=== PATIENT | female | born 1970 | race African-American/Black ===

== ENCOUNTER 2017-07-09 10:02 | Inpatient (IN) | payer OTHER ==
[2017-07-09] MEDS ORDERED: LORAZEPAM 2 MG INJ IV (12:30)
[2017-07-09] MEDS ORDERED: ALBUTEROL/IPRATROPIUM (NEB) 3 ML AMP HHN (12:30)
[2017-07-09] MEDS ORDERED: MAGNESIUM HYDROXIDE 30ML CUP PO (12:30)
[2017-07-09] MEDS ORDERED: NITROGLYCERIN (SL) 0.4 MG TAB SL (12:30)
[2017-07-09] MEDS ORDERED: hydrALAzine 20 MG INJ IV (12:30)
[2017-07-09] MEDS ORDERED: NACL 0.9% 3 ML SYG IV (12:30)
[2017-07-09] MEDS ORDERED: DOCUSATE SODIUM 100 MG CAP PO (12:30)
[2017-07-09] MEDS ORDERED: ONDANSETRON 4 MG INJ IV (12:30)
[2017-07-09] MEDS ORDERED: NA PHOSPHATE/BIPHOS 133 ML ENEMA PR (12:30)
[2017-07-09 14:07] LABS: INR 0.98; PROTIME 13.1 Sec (11.9-14.9)
[2017-07-09 14:08] LABS: PARTIAL THROMBOPLASTIN TIME 28.3 Sec (25.0-35.0)
[2017-07-09] MEDS: BACLOFEN 10 MG TAB PO ×2 (14:18→20:53)
[2017-07-09] MEDS: ACET/BUTAL/CAFF TAB PO (14:18)
[2017-07-09] MEDS: SOD CHLORIDE 0.45% 1,000 ML IV (14:19)
[2017-07-09 14:20] LABS: FREE T4 (FREE THYROXINE) 1.21 ng/dl (0.64-1.79)
[2017-07-09] MEDS: HEPARIN 5,000 UNIT/0.5 ML VIAL SC (20:56)
[2017-07-09] MEDS: ACETAMINOPHEN 325 MG TAB PO (20:57)
[2017-07-09] MEDS: morphine 2 MG INJ IV (23:15)
[2017-07-10] MEDS: SOD CHLORIDE 0.45% 1,000 ML IV ×2 (01:25→05:29)
[2017-07-10 05:26] LABS: ADD MAN DIFF? NO
[2017-07-10] MEDS: PANTOPRAZOLE 40 MG INJ IV (05:28)
[2017-07-10 05:33] LABS: BASOPHIL # 0.1 10^3/ul (0.0-0.1); BASOPHILS % 0.8 % (0.0-2.0); EOSINOPHILS # 0.2 10^3/ul (0.0-0.5); EOSINOPHILS % 2.6 % (0.0-7.0); HEMATOCRIT 39.2 % (37.0-47.0); HEMOGLOBIN 12.8 g/dl (12.0-16.0); LYMPHOCYTES % 48.9 % (15.0-51.0); MEAN CORPUSCULAR HEMOGLOBIN 27.2 pg (29.0-33.0); MEAN CORPUSCULAR HGB CONC 32.7 g/dl (32.0-37.0); MEAN CORPUSCULAR VOLUME 83.4 fl (82.0-101.0); MEAN PLATELET VOLUME 9.9 fl (7.4-10.4); MONOCYTE # 0.5 10^3/ul (0.3-0.9); MONOCYTES % 8.3 % (0.0-11.0); NEUTROPHIL # 2.4 10^3/ul (1.6-7.5); NEUTROPHILS % 39.2 % (39.0-77.0); PLATELET COUNT 350 10^3/UL (140-415); RED CELL DISTRIBUTION WIDTH 12.9 % (11.5-14.5)
[2017-07-10 05:33] LABS: WHITE BLOOD COUNT 6.1 10^3/ul (4.8-10.8)
[2017-07-10 05:43] LABS: HEMOGLOBIN A1C 5.6 % (0-5.9)
[2017-07-10 06:14] LABS: ANION GAP 15 (8-16); BLOOD UREA NITROGEN 12 mg/dl (7-20); CALCIUM 8.8 mg/dl (8.4-10.2); CARBON DIOXIDE 25 mmol/L (21-31); CHLORIDE 109 mmol/L (97-110); CHOL/HDL RATIO 5.4 RATIO; CHOLESTEROL 179 mg/dl (100-200); CREATININE 0.78 mg/dl (0.44-1.00); GLUCOSE 92 mg/dl (70-220); HDL CHOLESTEROL 33 mg/dl (34-88); LDL CHOLESTEROL,CALCULATED 126 mg/dl; PHOSPHORUS 5.4 mg/dl (2.5-4.9); SODIUM 145 mmol/L (135-144); TRIGLYCERIDES 102 mg/dl (0-149)
[2017-07-10 06:28] LABS: THYROID STIMULATING HORMONE 0.501 MIU/L (0.465-4.680)
[2017-07-10] MEDS: BACLOFEN 10 MG TAB PO (08:58)
[2017-07-10] MEDS: HEPARIN 5,000 UNIT/0.5 ML VIAL SC ×2 (08:58→21:40)
[2017-07-10] MEDS: ACET/BUTAL/CAFF TAB PO (10:22)
[2017-07-10] MEDS ORDERED: BACLOFEN 10 MG TAB PO (12:00)
[2017-07-10] MEDS: NAPROXEN 500 MG TAB PO ×2 (13:31→21:14)
[2017-07-10] MEDS ORDERED: DOCUSATE SODIUM 100 MG CAP PO (21:00)
[2017-07-11] MEDS: HYDROCODONE/APAP (5/325) TAB PO (04:47)
[2017-07-11 05:10] LABS: ADD MAN DIFF? NO
[2017-07-11 05:16] LABS: BASOPHIL # 0.1 10^3/ul (0.0-0.1); BASOPHILS % 0.9 % (0.0-2.0); EOSINOPHILS # 0.2 10^3/ul (0.0-0.5); EOSINOPHILS % 2.2 % (0.0-7.0); HEMATOCRIT 39.5 % (37.0-47.0); HEMOGLOBIN 12.9 g/dl (12.0-16.0); LYMPHOCYTES # 3.2 10^3/ul (0.8-2.9); LYMPHOCYTES % 47.2 % (15.0-51.0); MEAN CORPUSCULAR HEMOGLOBIN 27.2 pg (29.0-33.0); MEAN CORPUSCULAR HGB CONC 32.7 g/dl (32.0-37.0); MEAN CORPUSCULAR VOLUME 83.3 fl (82.0-101.0); MEAN PLATELET VOLUME 10.3 fl (7.4-10.4); MONOCYTE # 0.6 10^3/ul (0.3-0.9); MONOCYTES % 8.5 % (0.0-11.0); NEUTROPHIL # 2.8 10^3/ul (1.6-7.5); NEUTROPHILS % 41.1 % (39.0-77.0); PLATELET COUNT 350 10^3/UL (140-415); RED BLOOD COUNT 4.74 10^6/ul (4.20-5.40); RED CELL DISTRIBUTION WIDTH 12.9 % (11.5-14.5)
[2017-07-11 05:16] LABS: WHITE BLOOD COUNT 6.7 10^3/ul (4.8-10.8)
[2017-07-11 05:49] LABS: ANION GAP 15 (8-16); BLOOD UREA NITROGEN 14 mg/dl (7-20); CALCIUM 8.8 mg/dl (8.4-10.2); CARBON DIOXIDE 23 mmol/L (21-31); CHLORIDE 111 mmol/L (97-110); GLUCOSE 97 mg/dl (70-220); POTASSIUM 4.2 mmol/L (3.5-5.1); SODIUM 145 mmol/L (135-144)
[2017-07-11] MEDS: NAPROXEN 500 MG TAB PO (09:00)
[2017-07-11] MEDS: HEPARIN 5,000 UNIT/0.5 ML VIAL SC (09:00)
== END 2017-07-11 12:02 | disposition home or self-care (01) | DRG 552 ==
LOC: MS1 10:02
PROVIDERS: Internal Medicine
DX: S33.5XXA Sprain of ligaments of lumbar spine, initial encounter (principal); R55 Syncope and collapse; M54.16 Radiculopathy, lumbar region; M62.81 Muscle weakness (generalized); X58.XXXA Exposure to other specified factors, initial encounter; Y92.009 Unspecified place in unspecified non-institutional (private) residence as the place of occurrence of the external cause
CPT/HCPCS: 72141; 72146; 72148; 80048; 80061; 83036; 83735; 84100; 84439; 84443; 85025; 85610; 85730; 93005; 97110; 97116; 97161; 97165; 97530; 97535